=== PATIENT | female | born 1970 | race Caucasian/White ===

== ENCOUNTER 2018-09-30 09:08 | Inpatient (IN) | payer MEDICARE, MEDICAID ==
[~2018-09-30] VITALS: Ht 165.1 cm; Wt 70.8 kg
[~2018-09-30 09:08] MED LIST: ATOR20TA86 PO; BENZ1TAB70 PO; BUSP10TA23 PO; RISP3 PO
[2018-09-30 09:56] LABS: BASOPHILS % (AUTO) 0.8 % (0.0-2.0); EOSINOPHILS % (AUTO) 1.6 % (1.0-6.0); HEMOGLOBIN 15.3 g/dL (12.0-16.0); LYMPHOCYTES # (AUTO) 1.7 K/uL (1.0-4.8); LYMPHOCYTES % (AUTO) 28.2 % (22.0-44.0); MEAN CORPUSCULAR HGB CONC 34.7 G/dL (31.0-37.0); MEAN CORPUSCULAR VOLUME 92 fL (80-100); MONOCYTES # (AUTO) 0.4 K/uL (0.1-1.0); MONOCYTES % (AUTO) 7.4 % (2.0-9.0); NEUTROPHILS # (AUTO) 3.7 K/uL (1.8-7.7); PLATELET COUNT (AUTO) 307 K/uL (150-450); RED BLOOD CELL COUNT(AUTO) 4.78 MIL/uL (4.00-5.20); RED CELL DISTRIBUTION WIDTH 14.3 % (11.5-14.5)
[2018-09-30 10:05] LABS: ANION GAP 5 mmol/L (8-16); CALCIUM, TOTAL 9.3 mg/dL (8.8-10.5); CARBON DIOXIDE 31 mmol/L (22-29); CHLORIDE 103 mmol/L (98-107); CREATININE 0.99 mg/dL (0.60-1.30); GLOMERULAR FILTR. RATE CALC 60 mL/min (>60); GLUCOSE,RANDOM 104 mg/dL (70-110); POTASSIUM 4.6 mmol/L (3.5-5.1); SODIUM SERUM 139 mmol/L (136-145); UREA NITROGEN, BLOOD 13 mg/dL (7-18)
[2018-09-30 10:11] LABS: ALANINE AMINOTRANSFERASE 17 U/L (12-78); ALBUMIN 3.5 g/dL (3.4-5.0); ALKALINE PHOSPHATASE 94 U/L (46-116); ASPARTATE AMINOTRANSFERASE 13 U/L (15-37); BILIRUBIN,TOTAL 0.3 mg/dL (0.1-1.0); TOTAL PROTEIN, SERUM 6.9 g/dL (6.4-8.2)
[2018-09-30] MEDS ORDERED: HALOPERIDOL LACTATE 5 MG/ML VIAL IM ONE (11:45)
[2018-09-30] MEDS ORDERED: LORazepam 2 MG/ML VIAL IM ONE (11:45)
[2018-09-30] MEDS ORDERED: DiphenhydrAMINE HCL 50 MG/ML VIAL IM ONE (11:45)
[2018-09-30] MEDS ORDERED: ZOLPIDEM TARTRATE 10 MG TABLET PO PRN (12:00)
[2018-09-30] MEDS ORDERED: DiphenhydrAMINE HCL 25 MG CAPSULE PO ONE (12:30)
[2018-09-30] MEDS ORDERED: LORazepam 2 MG TABLET PO ONE (12:30)
[2018-09-30] MEDS ORDERED: IBUPROFEN 400 MG TABLET PO PRN ×2 (13:15→16:30)
[2018-09-30] MEDS ORDERED: ACETAMINOPHEN 325 MG TABLET PO PRN ×2 (13:15→16:30)
[2018-09-30 13:53] LABS: AMPHET/METH SCREEN,URINE NEGATIVE (NEGATIVE); BARBITURATE SCREEN, URINE NEGATIVE (NEGATIVE); BENZODIAZEPINES SCREEN,URINE NEGATIVE (NEGATIVE); CANNABINOID SCREEN,URINE NEGATIVE (NEGATIVE); COCAINE SCREEN,URINE NEGATIVE (NEGATIVE); METHADONE SCREEN, URINE NEGATIVE (NEGATIVE); OPIATE SCREEN,URINE NEGATIVE (NEGATIVE); PHENCYCLIDINE SCREEN,URINE NEGATIVE (NEGATIVE)
[2018-09-30 16:11] VITALS: BP 128/84
[2018-09-30] MEDS ORDERED: MAGNESIUM HYDROXIDE SUSPENSION 30 ML UDCUP PO PRN (16:30)
[2018-09-30] MEDS ORDERED: ALBUTEROL SULFATE HFA 90 MCG/PUFF 8 GM INHALER IH PRN (16:30)
[2018-09-30] MEDS ORDERED: ONDANSETRON HCL 4 MG TABLET PO PRN (16:30)
[2018-09-30] MEDS ORDERED: CloNIDine HCL 0.1 MG TABLET PO PRN (16:30)
[2018-09-30] MEDS ORDERED: NICOTINE 14 MG/24 HOUR PATCH TD PRN (16:30)
[2018-09-30] MEDS ORDERED: MAG HYDROX/AL HYDROX/SIMETH ES 30 ML SUSPENSION UDCUP PO PRN (16:30)
[2018-09-30] MEDS ORDERED: DOCUSATE SODIUM 100 MG CAPSULE PO PRN (16:30)
[2018-09-30] MEDS ORDERED: LOPERAMIDE HCL 2 MG CAPSULE PO PRN (16:30)
[2018-09-30] MEDS ORDERED: PETROLATUM,WHITE 71 GM JELLY TP PRN (16:30)
[2018-10-01 04:09] VITALS: BP 127/67
[2018-10-01] MEDS: GuaiFENesin/D-METHORPHAN [SUGAR-FREE] 200-20MG/10 ML SYRUP UDCUP PO PRN ×2 (04:15→17:27)
[2018-10-01] MEDS: LORazepam 2 MG TABLET PO PRN ×3 (04:15→17:02)
[2018-10-01 16:10] VITALS: BP 109/68
[2018-10-01] MEDS: HALOPERIDOL 5 MG TABLET PO PRN (17:02)
[2018-10-02 08:32] LABS: EOSINOPHILS % (AUTO) 1.6 % (1.0-6.0); HEMATOCRIT 44.4 % (36-46); HEMOGLOBIN 15.1 g/dL (12.0-16.0); LYMPHOCYTES # (AUTO) 1.6 K/uL (1.0-4.8); LYMPHOCYTES % (AUTO) 27.1 % (22.0-44.0); MEAN CORPUSCULAR HEMOGLOBIN 30.9 pg (26.0-34.0); MEAN CORPUSCULAR VOLUME 91 fL (80-100); MONOCYTES # (AUTO) 0.5 K/uL (0.1-1.0); MONOCYTES % (AUTO) 8.8 % (2.0-9.0); NEUTROPHILS # (AUTO) 3.6 K/uL (1.8-7.7); NEUTROPHILS % (AUTO) 61.5 % (40.0-70.0); PLATELET COUNT (AUTO) 307 K/uL (150-450); RED BLOOD CELL COUNT(AUTO) 4.89 MIL/uL (4.00-5.20); RED CELL DISTRIBUTION WIDTH 14.2 % (11.5-14.5)
[2018-10-02 08:36] LABS: HEMOGLOBIN A1C 5.3 % (4.5-6.2)
[2018-10-02 09:09] LABS: ALANINE AMINOTRANSFERASE 20 U/L (12-78); ALBUMIN 3.6 g/dL (3.4-5.0); ALKALINE PHOSPHATASE 88 U/L (46-116); ANION GAP 3 mmol/L (8-16); ASPARTATE AMINOTRANSFERASE 12 U/L (15-37); BILIRUBIN,TOTAL 0.3 mg/dL (0.1-1.0); CALCIUM, TOTAL 8.8 mg/dL (8.8-10.5); CARBON DIOXIDE 33 mmol/L (22-29); CHLORIDE 104 mmol/L (98-107); CHOL/HDL RATIO 4.8 (3.9-5.7); CHOLESTEROL 190 mg/dL (131-200); CREATININE 0.96 mg/dL (0.60-1.30); GLOMERULAR FILTR. RATE CALC > 60 mL/min (>60); GLUCOSE,RANDOM 95 mg/dL (70-110); HDL CHOLESTEROL 40 mg/dL (40-60); LDL CHOL (CALC.) 123 mg/dL (0-130); POTASSIUM 4.4 mmol/L (3.5-5.1); SODIUM SERUM 140 mmol/L (136-145); THYROID STIMULATING HORMONE 0.36 uIU/mL (0.36-3.74); TOTAL PROTEIN, SERUM 6.9 g/dL (6.4-8.2); TRIGLYCERIDES 133 mg/dL (15-150); UREA NITROGEN, BLOOD 21 mg/dL (7-18)
[2018-10-02] MEDS: LORazepam 2 MG TABLET PO PRN ×2 (09:59→16:23)
[2018-10-02] MEDS: RisperiDONE 3 MG TABLET PO SCH ×2 (10:12→17:03)
[2018-10-02] MEDS: BusPIRone HCL 10 MG TABLET PO SCH ×2 (10:12→17:03)
[2018-10-02] MEDS: BENZTROPINE MESYLATE 1 MG TABLET PO SCH ×2 (10:12→17:03)
[2018-10-02 16:16] VITALS: BP 119/65
[2018-10-03 06:34] VITALS: BP 125/70
[2018-10-03 09:18] VITALS: BP 104/71
[2018-10-03] MEDS: BusPIRone HCL 10 MG TABLET PO SCH ×2 (09:21→16:47)
[2018-10-03] MEDS: BENZTROPINE MESYLATE 1 MG TABLET PO SCH ×2 (09:21→16:48)
[2018-10-03] MEDS: RisperiDONE 3 MG TABLET PO SCH ×2 (09:21→16:47)
[2018-10-03 17:20] VITALS: BP 111/72
[2018-10-04 06:51] VITALS: BP 115/70
[2018-10-04] MEDS: BusPIRone HCL 10 MG TABLET PO SCH ×2 (09:11→16:37)
[2018-10-04] MEDS: BENZTROPINE MESYLATE 1 MG TABLET PO SCH ×2 (09:11→16:37)
[2018-10-04] MEDS: RisperiDONE 3 MG TABLET PO SCH ×2 (09:13→16:37)
[2018-10-04] MEDS: LORazepam 2 MG TABLET PO PRN (09:13)
[2018-10-04] MEDS: HALOPERIDOL 5 MG TABLET PO PRN (09:13)
[2018-10-04 16:04] VITALS: BP 109/78
[2018-10-05 08:20] VITALS: BP 128/62
[2018-10-05] MEDS: RisperiDONE 3 MG TABLET PO SCH (08:43)
[2018-10-05] MEDS: HALOPERIDOL 5 MG TABLET PO PRN (08:43)
[2018-10-05] MEDS: LORazepam 2 MG TABLET PO PRN (08:43)
[2018-10-05] MEDS: BENZTROPINE MESYLATE 1 MG TABLET PO SCH (08:43)
[2018-10-05] MEDS: BusPIRone HCL 10 MG TABLET PO SCH (08:43)
== END 2018-10-05 13:30 | disposition home or self-care (01) | DRG 885 ==
LOC: EMS 09:09 → B3A 12:45
PROVIDERS: ADMIT Psychiatry & Neurology Child & Adolescent Psychiatry; ATTEND Psychiatry & Neurology Child & Adolescent Psychiatry
DX: F20.0 Paranoid schizophrenia (principal); J44.9 Chronic obstructive pulmonary disease, unspecified; E78.5 Hyperlipidemia, unspecified; G47.00 Insomnia, unspecified; I10 Essential (primary) hypertension; F17.200 Nicotine dependence, unspecified, uncomplicated; R00.0 Tachycardia, unspecified; R45.850 Homicidal ideations; Z71.6 Tobacco abuse counseling; Z28.21 Immunization not carried out because of patient refusal
CPT/HCPCS: 83036; 84443; 87081; G0480; J1200; J2060; J3535

== ENCOUNTER 2020-02-29 10:06 | Inpatient (IN) | payer MEDICARE, MEDICAID ==
[~2020-02-29 10:06] MED LIST changes: -ATOR20TA86 PO
[2020-02-29] MEDS ORDERED: TUBERCULIN, PURIFIED PROTEIN DERIVATIVE 5 TU/0.1 ML SYRINGE ID ONE (14:30)
[2020-02-29] MEDS ORDERED: HALOPERIDOL 5 MG TABLET PO PRN (14:30)
[2020-02-29 16:20] VITALS: BP 129/85
[2020-02-29] MEDS: BACITRACIN 28.4 GM OINTMENT TP SCH (16:57)
[2020-03-01] MEDS ORDERED: DiphenhydrAMINE HCL 50 MG/ML VIAL IM ONE ×2 (04:00→13:15)
[2020-03-01] MEDS ORDERED: LORazepam 2 MG/ML VIAL IM ONE ×2 (04:00→13:15)
[2020-03-01] MEDS ORDERED: HALOPERIDOL LACTATE 5 MG/ML VIAL IM ONE ×2 (04:00→13:15)
[2020-03-01 08:33] VITALS: BP 105/55
[2020-03-01] MEDS: BACITRACIN 28.4 GM OINTMENT TP SCH ×2 (09:00→17:07)
[2020-03-01] MEDS ORDERED: ONDANSETRON HCL 4 MG TABLET PO PRN (09:30)
[2020-03-01] MEDS ORDERED: LOPERAMIDE HCL 2 MG CAPSULE PO PRN (09:30)
[2020-03-01] MEDS ORDERED: GuaiFENesin/D-METHORPHAN [SUGAR-FREE] 200-20MG/10 ML SYRUP UDCUP PO PRN (09:30)
[2020-03-01] MEDS ORDERED: CloNIDine HCL 0.1 MG TABLET PO PRN (09:30)
[2020-03-01] MEDS ORDERED: IBUPROFEN 400 MG TABLET PO PRN (09:30)
[2020-03-01] MEDS ORDERED: DOCUSATE SODIUM 100 MG CAPSULE PO PRN (09:30)
[2020-03-01] MEDS ORDERED: NICOTINE 14 MG/24 HOUR PATCH TD PRN (09:30)
[2020-03-01] MEDS ORDERED: ALBUTEROL SULFATE HFA 90 MCG/PUFF 8 GM INHALER IH PRN (09:30)
[2020-03-01] MEDS ORDERED: PETROLATUM,WHITE 28 GM JELLY TP PRN (09:30)
[2020-03-01] MEDS ORDERED: MAG HYDROX/AL HYDROX/SIMETH ES 30 ML SUSPENSION UDCUP PO PRN (09:30)
[2020-03-01] MEDS ORDERED: MAGNESIUM HYDROXIDE SUSPENSION 30 ML UDCUP PO PRN (09:30)
[2020-03-01] MEDS ORDERED: ACETAMINOPHEN 325 MG TABLET PO PRN (09:30)
[2020-03-01] MEDS ORDERED: BENZ1TAB10 PO (12:07)
[2020-03-01 16:15] VITALS: BP 110/60
[2020-03-01] MEDS: BENZTROPINE MESYLATE 1 MG TABLET PO SCH (17:06)
[2020-03-01] MEDS: RisperiDONE 3 MG TABLET PO SCH (17:06)
[2020-03-01] MEDS: BusPIRone HCL 10 MG TABLET PO SCH (17:06)
[2020-03-01] MEDS: LORazepam 2 MG TABLET PO PRN (19:24)
[2020-03-01] MEDS: ZOLPIDEM TARTRATE 10 MG TABLET PO PRN (20:54)
[2020-03-02 06:55] VITALS: BP 125/66
[2020-03-02 08:17] VITALS: BP 118/64
[2020-03-02] MEDS: RisperiDONE 3 MG TABLET PO SCH ×2 (08:22→16:34)
[2020-03-02] MEDS: BusPIRone HCL 10 MG TABLET PO SCH ×2 (08:22→16:34)
[2020-03-02] MEDS: BACITRACIN 28.4 GM OINTMENT TP SCH ×2 (10:03→16:34)
[2020-03-02] MEDS: BENZTROPINE MESYLATE 1 MG TABLET PO SCH ×2 (10:03→16:34)
[2020-03-02] MEDS: LORazepam 2 MG TABLET PO PRN (14:54)
[2020-03-02 16:20] VITALS: BP 116/68
[2020-03-02] MEDS: ZOLPIDEM TARTRATE 10 MG TABLET PO PRN (21:29)
[2020-03-03 02:01] VITALS: BP 128/80
[2020-03-03 08:09] LABS: BASOPHILS % (AUTO) 0.9 % (0.0-2.0); EOSINOPHILS % (AUTO) 2.4 % (1.0-6.0); LYMPHOCYTES # (AUTO) 1.9 K/uL (1.0-4.8); MEAN CORPUSCULAR HEMOGLOBIN 30.2 pg (26.0-34.0); MEAN CORPUSCULAR VOLUME 89 fL (80-100); MONOCYTES # (AUTO) 0.4 K/uL (0.1-1.0); MONOCYTES % (AUTO) 8.1 % (2.0-9.0); NEUTROPHILS # (AUTO) 2.6 K/uL (1.8-7.7); NEUTROPHILS % (AUTO) 50.6 % (40.0-70.0); PLATELET COUNT (AUTO) 253 K/uL (150-450); RED BLOOD CELL COUNT(AUTO) 4.96 MIL/uL (4.00-5.20); RED CELL DISTRIBUTION WIDTH 13.3 % (11.5-14.5)
[2020-03-03 08:19] VITALS: BP 100/67
[2020-03-03 08:49] LABS: ALANINE AMINOTRANSFERASE 13 U/L (12-78); ALBUMIN 3.7 g/dL (3.4-5.0); ALKALINE PHOSPHATASE 74 U/L (46-116); ANION GAP 9 mmol/L (8-16); ASPARTATE AMINOTRANSFERASE 9 U/L (15-37); BILIRUBIN,TOTAL 0.3 mg/dL (0.1-1.0); CARBON DIOXIDE 27 mmol/L (22-29); CHLORIDE 106 mmol/L (98-107); CHOL/HDL RATIO 4.1 (3.9-5.7); CHOLESTEROL 180 mg/dL (131-200); GLOMERULAR FILTR. RATE CALC > 60 mL/min (>60); GLUCOSE,RANDOM 86 mg/dL (70-110); HDL CHOLESTEROL 44 mg/dL (40-60); LDL CHOL (CALC.) 107 mg/dL (0-130); POTASSIUM 3.9 mmol/L (3.5-5.1); SODIUM SERUM 142 mmol/L (136-145); THYROID STIMULATING HORMONE 0.74 uIU/mL (0.36-3.74); TOTAL PROTEIN, SERUM 6.4 g/dL (6.4-8.2); TRIGLYCERIDES 145 mg/dL (15-150); UREA NITROGEN, BLOOD 17 mg/dL (7-18)
[2020-03-03] MEDS: BENZTROPINE MESYLATE 1 MG TABLET PO SCH ×2 (09:06→16:48)
[2020-03-03] MEDS: RisperiDONE 3 MG TABLET PO SCH ×2 (09:06→16:48)
[2020-03-03] MEDS: BusPIRone HCL 10 MG TABLET PO SCH ×2 (09:06→16:48)
[2020-03-03 09:15] LABS: HCG,QUANTITATIVE 1 mIU/mL (0-6)
[2020-03-03] MEDS: BACITRACIN 28.4 GM OINTMENT TP SCH ×2 (09:20→16:49)
[2020-03-03 16:06] VITALS: BP 110/74
[2020-03-03] MEDS: ZOLPIDEM TARTRATE 10 MG TABLET PO PRN (22:44)
[2020-03-04 00:30] VITALS: BP 129/89
[2020-03-04 08:07] VITALS: BP 101/61
[2020-03-04] MEDS: BACITRACIN 28.4 GM OINTMENT TP SCH ×2 (09:30→16:44)
[2020-03-04] MEDS: BusPIRone HCL 10 MG TABLET PO SCH ×2 (09:32→16:41)
[2020-03-04] MEDS: RisperiDONE 3 MG TABLET PO SCH ×2 (09:32→16:42)
[2020-03-04] MEDS: BENZTROPINE MESYLATE 1 MG TABLET PO SCH ×2 (09:32→16:42)
[2020-03-05 01:10] VITALS: BP 103/70
[2020-03-05] MEDS: BusPIRone HCL 10 MG TABLET PO SCH ×2 (08:28→16:32)
[2020-03-05] MEDS: RisperiDONE 3 MG TABLET PO SCH ×2 (08:28→16:32)
[2020-03-05] MEDS: BENZTROPINE MESYLATE 1 MG TABLET PO SCH ×2 (08:28→16:32)
[2020-03-05] MEDS: BACITRACIN 28.4 GM OINTMENT TP SCH ×2 (08:29→16:33)
[2020-03-05 09:26] VITALS: BP 100/76
[2020-03-05 16:06] VITALS: BP 106/64
[2020-03-06 01:09] VITALS: BP 109/73
[2020-03-06] MEDS: BENZTROPINE MESYLATE 1 MG TABLET PO SCH ×2 (08:30→16:28)
[2020-03-06] MEDS: BusPIRone HCL 10 MG TABLET PO SCH ×2 (08:30→16:28)
[2020-03-06] MEDS: RisperiDONE 3 MG TABLET PO SCH ×2 (08:30→16:28)
[2020-03-06 08:43] VITALS: BP 105/60
[2020-03-06] MEDS: BACITRACIN 28.4 GM OINTMENT TP SCH ×2 (08:58→16:28)
[2020-03-06 16:12] VITALS: BP 108/69
[2020-03-07 00:17] VITALS: BP 102/71
[2020-03-07 08:05] VITALS: BP 133/63
[2020-03-07] MEDS: BusPIRone HCL 10 MG TABLET PO SCH ×2 (09:15→16:32)
[2020-03-07] MEDS: LORazepam 2 MG TABLET PO PRN (09:15)
[2020-03-07] MEDS: BENZTROPINE MESYLATE 1 MG TABLET PO SCH ×2 (09:16→16:32)
[2020-03-07] MEDS: BACITRACIN 28.4 GM OINTMENT TP SCH ×2 (09:16→16:32)
[2020-03-07] MEDS: RisperiDONE 3 MG TABLET PO SCH ×2 (09:16→16:32)
[2020-03-07 16:07] VITALS: BP 121/76
[2020-03-08 00:07] VITALS: BP 112/70
[2020-03-08] MEDS: BusPIRone HCL 10 MG TABLET PO SCH ×2 (08:12→17:01)
[2020-03-08] MEDS: BENZTROPINE MESYLATE 1 MG TABLET PO SCH ×2 (08:12→17:01)
[2020-03-08] MEDS: RisperiDONE 3 MG TABLET PO SCH ×2 (08:12→17:01)
[2020-03-08] MEDS: BACITRACIN 28.4 GM OINTMENT TP SCH ×2 (08:14→17:01)
[2020-03-08 08:19] VITALS: BP 102/63
[2020-03-08] MEDS: MULTIVITAMINS WITH IRON TABLET PO SCH (12:41)
[2020-03-08 16:14] VITALS: BP 102/60
[2020-03-09] MEDS: BENZTROPINE MESYLATE 1 MG TABLET PO SCH ×2 (08:13→16:20)
[2020-03-09] MEDS: BusPIRone HCL 10 MG TABLET PO SCH ×2 (08:13→16:20)
[2020-03-09] MEDS: MULTIVITAMINS WITH IRON TABLET PO SCH (08:13)
[2020-03-09] MEDS: RisperiDONE 3 MG TABLET PO SCH ×2 (08:13→16:20)
[2020-03-09] MEDS: BACITRACIN 28.4 GM OINTMENT TP SCH ×2 (08:17→16:20)
[2020-03-09 08:33] VITALS: BP 105/65
[2020-03-09 16:05] VITALS: BP 113/60
[2020-03-10] MEDS: BusPIRone HCL 10 MG TABLET PO SCH ×2 (08:15→16:30)
[2020-03-10] MEDS: RisperiDONE 3 MG TABLET PO SCH ×2 (08:15→16:30)
[2020-03-10] MEDS: BENZTROPINE MESYLATE 1 MG TABLET PO SCH ×2 (08:15→16:30)
[2020-03-10] MEDS: MULTIVITAMINS WITH IRON TABLET PO SCH (08:15)
[2020-03-10] MEDS: BACITRACIN 28.4 GM OINTMENT TP SCH (08:19)
[2020-03-10 16:14] VITALS: BP 108/68
[2020-03-10] MEDS: LORazepam 2 MG TABLET PO PRN (17:31)
[2020-03-11 08:12] VITALS: BP 121/68
[2020-03-11] MEDS: RisperiDONE 3 MG TABLET PO SCH ×2 (08:27→16:30)
[2020-03-11] MEDS: MULTIVITAMINS WITH IRON TABLET PO SCH (08:28)
[2020-03-11] MEDS: BENZTROPINE MESYLATE 1 MG TABLET PO SCH ×2 (08:28→16:30)
[2020-03-11] MEDS: BusPIRone HCL 10 MG TABLET PO SCH ×2 (08:28→16:30)
[2020-03-11 16:29] VITALS: BP 109/68
[2020-03-11] MEDS: LORazepam 2 MG TABLET PO PRN (18:23)
[2020-03-12 01:39] VITALS: BP 96/50
[2020-03-12 08:06] VITALS: BP 105/61
[2020-03-12] MEDS: BusPIRone HCL 10 MG TABLET PO SCH ×2 (08:44→16:28)
[2020-03-12] MEDS: RisperiDONE 3 MG TABLET PO SCH ×2 (08:44→16:28)
[2020-03-12] MEDS: MULTIVITAMINS WITH IRON TABLET PO SCH (08:44)
[2020-03-12] MEDS: BENZTROPINE MESYLATE 1 MG TABLET PO SCH ×2 (08:44→16:29)
[2020-03-12 16:14] VITALS: BP 107/70
[2020-03-13] MEDS: BusPIRone HCL 10 MG TABLET PO SCH ×2 (08:12→16:31)
[2020-03-13] MEDS: RisperiDONE 3 MG TABLET PO SCH ×2 (08:12→16:42)
[2020-03-13] MEDS: MULTIVITAMINS WITH IRON TABLET PO SCH (08:12)
[2020-03-13] MEDS: BENZTROPINE MESYLATE 1 MG TABLET PO SCH ×2 (08:12→16:31)
[2020-03-13 08:22] VITALS: BP 90/55
[2020-03-13] MEDS: LORazepam 2 MG TABLET PO PRN (14:58)
[2020-03-13 16:12] VITALS: BP 106/62
[2020-03-14] MEDS: MULTIVITAMINS WITH IRON TABLET PO SCH (08:19)
[2020-03-14] MEDS: RisperiDONE 3 MG TABLET PO SCH ×2 (08:19→16:16)
[2020-03-14] MEDS: BENZTROPINE MESYLATE 1 MG TABLET PO SCH ×2 (08:19→16:16)
[2020-03-14] MEDS: BusPIRone HCL 10 MG TABLET PO SCH ×2 (08:20→16:16)
[2020-03-14 17:03] VITALS: BP 97/66
[2020-03-14] MEDS: LORazepam 2 MG TABLET PO PRN (17:42)
[2020-03-15 05:28] VITALS: BP 99/57
[2020-03-15] MEDS: BENZTROPINE MESYLATE 1 MG TABLET PO SCH ×2 (08:43→16:35)
[2020-03-15] MEDS: MULTIVITAMINS WITH IRON TABLET PO SCH (08:43)
[2020-03-15] MEDS: RisperiDONE 3 MG TABLET PO SCH ×2 (08:43→16:35)
[2020-03-15] MEDS: BusPIRone HCL 10 MG TABLET PO SCH ×2 (08:44→16:35)
[2020-03-15 08:51] VITALS: BP 97/60
[2020-03-15 16:00] VITALS: BP 97/61
[2020-03-15 19:55] VITALS: BP 106/70
[2020-03-16 01:14] VITALS: BP 110/69
[2020-03-16 08:41] VITALS: BP 100/60
[2020-03-16] MEDS: MULTIVITAMINS WITH IRON TABLET PO SCH (08:51)
[2020-03-16] MEDS: BusPIRone HCL 10 MG TABLET PO SCH ×2 (08:51→17:07)
[2020-03-16] MEDS: RisperiDONE 3 MG TABLET PO SCH ×2 (08:51→16:47)
[2020-03-16] MEDS: BENZTROPINE MESYLATE 1 MG TABLET PO SCH ×2 (08:51→16:47)
[2020-03-16] MEDS: LORazepam 2 MG TABLET PO PRN (15:54)
[2020-03-16 16:00] VITALS: BP 121/97
[2020-03-17 00:22] VITALS: BP 117/78
[2020-03-17] MEDS: MULTIVITAMINS WITH IRON TABLET PO SCH (08:21)
[2020-03-17] MEDS: RisperiDONE 3 MG TABLET PO SCH ×2 (08:22→16:29)
[2020-03-17] MEDS: BENZTROPINE MESYLATE 1 MG TABLET PO SCH ×2 (08:22→16:29)
[2020-03-17] MEDS: BusPIRone HCL 10 MG TABLET PO SCH ×2 (08:22→16:29)
[2020-03-17 08:27] VITALS: BP 105/68
[2020-03-17] MEDS: LORazepam 2 MG TABLET PO PRN (10:24)
[2020-03-17 16:11] VITALS: BP 107/62
[2020-03-18 01:59] VITALS: BP 100/68
[2020-03-18] MEDS: ZOLPIDEM TARTRATE 10 MG TABLET PO PRN (02:44)
[2020-03-18] MEDS: RisperiDONE 3 MG TABLET PO SCH ×2 (08:18→16:35)
[2020-03-18] MEDS: BENZTROPINE MESYLATE 1 MG TABLET PO SCH ×2 (08:18→16:35)
[2020-03-18] MEDS: BusPIRone HCL 10 MG TABLET PO SCH ×2 (08:18→16:35)
[2020-03-18] MEDS: MULTIVITAMINS WITH IRON TABLET PO SCH (08:18)
[2020-03-18] MEDS: LORazepam 2 MG TABLET PO PRN ×2 (10:17→18:38)
[2020-03-18 16:52] VITALS: BP 105/64
[2020-03-19 01:03] VITALS: BP 108/66
[2020-03-19 08:11] VITALS: BP 100/60
[2020-03-19] MEDS: BusPIRone HCL 10 MG TABLET PO SCH ×2 (08:28→16:42)
[2020-03-19] MEDS: MULTIVITAMINS WITH IRON TABLET PO SCH (08:28)
[2020-03-19] MEDS: RisperiDONE 3 MG TABLET PO SCH ×2 (08:28→16:42)
[2020-03-19] MEDS: BENZTROPINE MESYLATE 1 MG TABLET PO SCH ×2 (08:28→16:42)
[2020-03-19] MEDS: LORazepam 2 MG TABLET PO PRN ×2 (10:28→16:06)
[2020-03-19 16:50] VITALS: BP 100/59
[2020-03-20 00:23] VITALS: BP 109/69
[2020-03-20] MEDS: ZOLPIDEM TARTRATE 10 MG TABLET PO PRN (00:45)
[2020-03-20 08:35] VITALS: BP 110/65
[2020-03-20] MEDS: MULTIVITAMINS WITH IRON TABLET PO SCH (08:38)
[2020-03-20] MEDS: BusPIRone HCL 10 MG TABLET PO SCH (08:38)
[2020-03-20] MEDS: RisperiDONE 3 MG TABLET PO SCH (08:39)
[2020-03-20] MEDS: BENZTROPINE MESYLATE 1 MG TABLET PO SCH (08:39)
== END 2020-03-20 12:40 | disposition home or self-care (01) | DRG 885 ==
LOC: B2X 14:25
PROVIDERS: ADMIT Psychiatry & Neurology Child & Adolescent Psychiatry; ATTEND Psychiatry & Neurology Child & Adolescent Psychiatry
DX: F25.0 Schizoaffective disorder, bipolar type (principal); I10 Essential (primary) hypertension; E78.5 Hyperlipidemia, unspecified; J44.9 Chronic obstructive pulmonary disease, unspecified; F41.9 Anxiety disorder, unspecified; G47.00 Insomnia, unspecified; K30 Functional dyspepsia; Z91.14 Patient's other noncompliance with medication regimen; Z91.19 Patient's noncompliance with other medical treatment and regimen
CPT/HCPCS: 84443; J1200; J1630; J2060

== ENCOUNTER 2020-04-08 11:15 | Inpatient (IN) | payer MEDICARE, MEDICAID ==
[~2020-04-08] VITALS: Ht 165.1 cm; Wt 65.0 kg
[~2020-04-08 11:15] MED LIST changes: +BENZ1TAB10 PO; -BENZ1TAB70 PO; -RISP3 PO; +RISP3TAB14 PO
[2020-04-08] MEDS ORDERED: ZOLPIDEM TARTRATE 5 MG TABLET PO PRN (14:45)
[2020-04-08] MEDS ORDERED: HALOPERIDOL 5 MG TABLET PO PRN (14:45)
[2020-04-08 15:16] VITALS: BP 123/76
[2020-04-08] MEDS: LORazepam 2 MG TABLET PO PRN (15:48)
[2020-04-08 17:05] VITALS: BP 114/62
[2020-04-09 00:11] VITALS: BP 112/70
[2020-04-09 08:24] VITALS: BP 138/75
[2020-04-09] MEDS: LORazepam 2 MG TABLET PO PRN ×2 (09:57→19:02)
[2020-04-09] MEDS: BusPIRone HCL 10 MG TABLET PO SCH (16:30)
[2020-04-09] MEDS: RisperiDONE 3 MG TABLET PO SCH (16:30)
[2020-04-09] MEDS: BENZTROPINE MESYLATE 1 MG TABLET PO SCH (16:30)
[2020-04-09 16:52] VITALS: BP 107/58
[2020-04-10] MEDS: RisperiDONE 3 MG TABLET PO SCH ×2 (08:33→17:00)
[2020-04-10] MEDS: BusPIRone HCL 10 MG TABLET PO SCH ×2 (08:33→17:00)
[2020-04-10] MEDS: BENZTROPINE MESYLATE 1 MG TABLET PO SCH ×2 (08:33→17:00)
[2020-04-10] MEDS: LORazepam 2 MG TABLET PO PRN ×2 (11:35→19:37)
[2020-04-10 16:05] VITALS: BP 108/66
[2020-04-11 06:04] VITALS: BP 100/65
[2020-04-11] MEDS: RisperiDONE 3 MG TABLET PO SCH ×2 (08:44→16:51)
[2020-04-11] MEDS: BusPIRone HCL 10 MG TABLET PO SCH ×2 (08:44→16:52)
[2020-04-11] MEDS: BENZTROPINE MESYLATE 1 MG TABLET PO SCH ×2 (08:45→16:52)
[2020-04-11 16:11] VITALS: BP_SYST 102; BP_SYST 90; BP_DIAS 55; BP_DIAS 65
[2020-04-12 04:02] VITALS: BP 101/69
[2020-04-12 08:39] VITALS: BP 122/68
[2020-04-12] MEDS: BusPIRone HCL 10 MG TABLET PO SCH ×2 (08:41→16:09)
[2020-04-12] MEDS: BENZTROPINE MESYLATE 1 MG TABLET PO SCH ×2 (08:41→16:08)
[2020-04-12] MEDS: RisperiDONE 3 MG TABLET PO SCH ×2 (08:41→16:08)
[2020-04-12] MEDS: LORazepam 2 MG TABLET PO PRN (11:33)
[2020-04-12] MEDS ORDERED: ACETAMINOPHEN 325 MG TABLET PO PRN (13:45)
[2020-04-12] MEDS ORDERED: CloNIDine HCL 0.1 MG TABLET PO PRN (13:45)
[2020-04-12] MEDS ORDERED: LOPERAMIDE HCL 2 MG CAPSULE PO PRN (13:45)
[2020-04-12] MEDS ORDERED: PETROLATUM,WHITE 28 GM JELLY TP PRN (13:45)
[2020-04-12] MEDS ORDERED: GuaiFENesin/D-METHORPHAN [SUGAR-FREE] 200-20MG/10 ML SYRUP UDCUP PO PRN (13:45)
[2020-04-12] MEDS ORDERED: MAGNESIUM HYDROXIDE SUSPENSION 30 ML UDCUP PO PRN (13:45)
[2020-04-12] MEDS ORDERED: ALBUTEROL SULFATE HFA 90 MCG/PUFF 8 GM INHALER IH PRN (13:45)
[2020-04-12] MEDS ORDERED: NICOTINE 14 MG/24 HOUR PATCH TD PRN (13:45)
[2020-04-12] MEDS ORDERED: ONDANSETRON HCL 4 MG TABLET PO PRN (13:45)
[2020-04-12] MEDS ORDERED: MAG HYDROX/AL HYDROX/SIMETH ES 30 ML SUSPENSION UDCUP PO PRN (13:45)
[2020-04-12] MEDS ORDERED: DOCUSATE SODIUM 100 MG CAPSULE PO PRN (13:45)
[2020-04-12 16:10] VITALS: BP 114/72
[2020-04-13 00:05] VITALS: BP 112/80
[2020-04-13] MEDS: BENZTROPINE MESYLATE 1 MG TABLET PO SCH ×2 (08:05→16:21)
[2020-04-13] MEDS: RisperiDONE 3 MG TABLET PO SCH ×2 (08:05→16:21)
[2020-04-13] MEDS: BusPIRone HCL 10 MG TABLET PO SCH ×2 (08:05→16:23)
[2020-04-13 09:00] VITALS: BP 118/65
[2020-04-13] MEDS: LORazepam 2 MG TABLET PO PRN ×2 (10:54→19:30)
[2020-04-13 16:02] VITALS: BP 96/62
[2020-04-13 20:20] VITALS: BP 101/64
[2020-04-14 02:17] VITALS: BP 100/70
[2020-04-14] MEDS: BusPIRone HCL 10 MG TABLET PO SCH ×2 (08:14→16:48)
[2020-04-14] MEDS: BENZTROPINE MESYLATE 1 MG TABLET PO SCH ×2 (08:14→16:48)
[2020-04-14] MEDS: RisperiDONE 3 MG TABLET PO SCH ×2 (08:15→16:48)
[2020-04-14 09:22] VITALS: BP 104/64
[2020-04-14] MEDS: LORazepam 2 MG TABLET PO PRN ×2 (09:26→16:00)
[2020-04-14 16:16] VITALS: BP 100/59
[2020-04-15 00:07] VITALS: BP 102/68
[2020-04-15] MEDS: RisperiDONE 3 MG TABLET PO SCH ×2 (08:11→16:40)
[2020-04-15] MEDS: BENZTROPINE MESYLATE 1 MG TABLET PO SCH ×2 (08:11→16:40)
[2020-04-15] MEDS: BusPIRone HCL 10 MG TABLET PO SCH ×2 (08:11→16:40)
[2020-04-15 08:19] VITALS: BP 96/58
[2020-04-15 11:00] VITALS: BP 103/61
[2020-04-15] MEDS: LORazepam 2 MG TABLET PO PRN (12:25)
[2020-04-15 16:05] VITALS: BP 115/68
[2020-04-16 05:00] VITALS: BP 120/81
[2020-04-16] MEDS: RisperiDONE 3 MG TABLET PO SCH ×2 (08:35→17:08)
[2020-04-16] MEDS: BENZTROPINE MESYLATE 1 MG TABLET PO SCH ×2 (08:35→17:08)
[2020-04-16] MEDS: BusPIRone HCL 10 MG TABLET PO SCH ×2 (08:35→17:08)
[2020-04-16 08:48] VITALS: BP 120/71
[2020-04-16] MEDS: LORazepam 2 MG TABLET PO PRN ×2 (12:08→17:08)
[2020-04-16 16:16] VITALS: BP 104/60
[2020-04-17 03:00] VITALS: BP 110/68
[2020-04-17] MEDS: RisperiDONE 3 MG TABLET PO SCH ×2 (08:10→16:34)
[2020-04-17] MEDS: BENZTROPINE MESYLATE 1 MG TABLET PO SCH ×2 (08:10→16:34)
[2020-04-17] MEDS: BusPIRone HCL 10 MG TABLET PO SCH ×2 (08:10→16:34)
[2020-04-17 08:14] VITALS: BP 97/57
[2020-04-17] MEDS: LORazepam 2 MG TABLET PO PRN ×2 (10:38→18:45)
[2020-04-17 16:04] VITALS: BP 107/70
[2020-04-18 00:05] VITALS: BP 117/73
[2020-04-18] MEDS: BENZTROPINE MESYLATE 1 MG TABLET PO SCH ×2 (08:31→16:33)
[2020-04-18] MEDS: BusPIRone HCL 10 MG TABLET PO SCH ×2 (08:31→16:33)
[2020-04-18] MEDS: RisperiDONE 3 MG TABLET PO SCH ×2 (08:31→16:33)
[2020-04-18] MEDS: LORazepam 2 MG TABLET PO PRN (10:35)
[2020-04-18 16:23] VITALS: BP 107/68
[2020-04-19 01:20] VITALS: BP 109/65
[2020-04-19] MEDS: BENZTROPINE MESYLATE 1 MG TABLET PO SCH ×2 (08:05→16:27)
[2020-04-19] MEDS: RisperiDONE 3 MG TABLET PO SCH ×2 (08:05→16:28)
[2020-04-19] MEDS: BusPIRone HCL 10 MG TABLET PO SCH ×2 (08:05→16:27)
[2020-04-19 08:28] VITALS: BP 100/54
[2020-04-19] MEDS: LORazepam 2 MG TABLET PO PRN ×2 (09:37→19:09)
[2020-04-19 16:29] VITALS: BP 100/65
[2020-04-19] MEDS: IBUPROFEN 400 MG TABLET PO PRN (16:29)
[2020-04-20] VITALS: BP 104/64
[2020-04-20 08:42] VITALS: BP 100/62
[2020-04-20] MEDS: RisperiDONE 3 MG TABLET PO SCH ×2 (09:00→17:27)
[2020-04-20] MEDS: BusPIRone HCL 10 MG TABLET PO SCH ×2 (09:00→17:27)
[2020-04-20] MEDS: BENZTROPINE MESYLATE 1 MG TABLET PO SCH ×2 (09:00→17:27)
[2020-04-20] MEDS: LORazepam 2 MG TABLET PO PRN ×2 (09:15→14:45)
[2020-04-20 16:36] VITALS: BP 101/95
[2020-04-21 01:52] VITALS: BP 103/62
[2020-04-21 08:12] VITALS: BP 102/60
[2020-04-21] MEDS: RisperiDONE 3 MG TABLET PO SCH ×2 (08:44→16:33)
[2020-04-21] MEDS: BusPIRone HCL 10 MG TABLET PO SCH ×2 (08:44→16:33)
[2020-04-21] MEDS: BENZTROPINE MESYLATE 1 MG TABLET PO SCH ×2 (08:44→16:33)
[2020-04-21] MEDS: IBUPROFEN 400 MG TABLET PO PRN (08:51)
[2020-04-21] MEDS: LORazepam 2 MG TABLET PO PRN ×2 (08:52→16:33)
[2020-04-21 16:15] VITALS: BP 100/75
[2020-04-22] VITALS: BP 106/63
[2020-04-22] MEDS: BENZTROPINE MESYLATE 1 MG TABLET PO SCH ×2 (08:07→17:03)
[2020-04-22] MEDS: BusPIRone HCL 10 MG TABLET PO SCH ×2 (08:07→17:03)
[2020-04-22] MEDS: RisperiDONE 3 MG TABLET PO SCH ×2 (08:07→17:03)
[2020-04-22 08:23] VITALS: BP 104/62
[2020-04-22] MEDS: LORazepam 2 MG TABLET PO PRN ×2 (09:28→17:03)
[2020-04-22 16:21] VITALS: BP 107/62
[2020-04-23] MEDS: BusPIRone HCL 10 MG TABLET PO SCH ×2 (08:19→17:47)
[2020-04-23] MEDS: BENZTROPINE MESYLATE 1 MG TABLET PO SCH ×2 (08:19→16:33)
[2020-04-23] MEDS: RisperiDONE 3 MG TABLET PO SCH ×2 (08:19→16:33)
[2020-04-23 09:00] VITALS: BP 90/50
[2020-04-23] MEDS: LORazepam 2 MG TABLET PO PRN ×2 (09:15→16:11)
[2020-04-23 16:09] VITALS: BP 105/78
[2020-04-24 05:00] VITALS: BP 101/69
[2020-04-24] MEDS: BusPIRone HCL 10 MG TABLET PO SCH ×2 (08:06→16:34)
[2020-04-24] MEDS: BENZTROPINE MESYLATE 1 MG TABLET PO SCH ×2 (08:06→16:34)
[2020-04-24] MEDS: RisperiDONE 3 MG TABLET PO SCH ×2 (08:06→16:34)
[2020-04-24 08:23] VITALS: BP 100/60
[2020-04-24] MEDS: LORazepam 2 MG TABLET PO PRN ×2 (09:22→18:07)
[2020-04-24 16:13] VITALS: BP 100/54
[2020-04-25 06:11] VITALS: BP 108/59
[2020-04-25] MEDS: BusPIRone HCL 10 MG TABLET PO SCH ×2 (08:20→16:58)
[2020-04-25] MEDS: RisperiDONE 3 MG TABLET PO SCH ×2 (08:20→16:58)
[2020-04-25] MEDS: BENZTROPINE MESYLATE 1 MG TABLET PO SCH ×2 (08:20→16:58)
[2020-04-25 08:33] VITALS: BP 143/60
[2020-04-25] MEDS: LORazepam 2 MG TABLET PO PRN ×2 (08:56→20:21)
[2020-04-25 16:04] VITALS: BP 132/68
[2020-04-26 02:26] VITALS: BP 103/64
[2020-04-26] MEDS: BENZTROPINE MESYLATE 1 MG TABLET PO SCH ×2 (09:03→16:32)
[2020-04-26] MEDS: RisperiDONE 3 MG TABLET PO SCH ×2 (09:03→16:32)
[2020-04-26] MEDS: BusPIRone HCL 10 MG TABLET PO SCH ×2 (09:03→16:32)
[2020-04-26 09:15] VITALS: BP 97/56
[2020-04-26] MEDS: LORazepam 2 MG TABLET PO PRN ×2 (09:44→18:43)
[2020-04-26 16:29] VITALS: BP 109/67
[2020-04-27 02:05] VITALS: BP 100/76
[2020-04-27] MEDS: BusPIRone HCL 10 MG TABLET PO SCH ×2 (08:08→17:23)
[2020-04-27] MEDS: BENZTROPINE MESYLATE 1 MG TABLET PO SCH ×2 (08:08→16:32)
[2020-04-27] MEDS: RisperiDONE 3 MG TABLET PO SCH ×2 (08:08→16:32)
[2020-04-27] MEDS: LORazepam 2 MG TABLET PO PRN ×2 (08:45→15:49)
[2020-04-27 16:17] VITALS: BP 113/76
[2020-04-28 03:27] VITALS: BP 102/66
[2020-04-28 08:54] VITALS: BP 100/55
[2020-04-28] MEDS: RisperiDONE 3 MG TABLET PO SCH ×2 (09:18→16:31)
[2020-04-28] MEDS: BENZTROPINE MESYLATE 1 MG TABLET PO SCH ×2 (09:18→16:31)
[2020-04-28] MEDS: BusPIRone HCL 10 MG TABLET PO SCH ×2 (09:19→16:58)
[2020-04-28] MEDS: LORazepam 2 MG TABLET PO PRN (09:49)
[2020-04-28 16:12] VITALS: BP 107/78
== END 2020-04-28 18:36 | disposition home or self-care (01) | DRG 885 ==
LOC: B2X 14:32
PROVIDERS: ADMIT Psychiatry & Neurology Child & Adolescent Psychiatry; ATTEND Psychiatry & Neurology Child & Adolescent Psychiatry
DX: F20.0 Paranoid schizophrenia (principal); I10 Essential (primary) hypertension; F10.10 Alcohol abuse, uncomplicated; E78.5 Hyperlipidemia, unspecified; F15.10 Other stimulant abuse, uncomplicated; F19.10 Other psychoactive substance abuse, uncomplicated; R00.0 Tachycardia, unspecified; G47.00 Insomnia, unspecified; Z87.442 Personal history of urinary calculi; Z87.891 Personal history of nicotine dependence; Z91.14 Patient's other noncompliance with medication regimen; Z71.89 Other specified counseling
CPT/HCPCS: 87081; 84703-TC; Z7610

== ENCOUNTER 2021-12-06 11:16 | Inpatient (IN) | payer MEDICARE, MEDICAID ==
[~2021-12-06] VITALS: Ht 165.1 cm; Wt 73.0 kg
[~2021-12-06 11:16] MED LIST changes: -RISP3TAB14 PO; +RISP3TAB35 PO
[2021-12-06] MEDS ORDERED: DiphenhydrAMINE HCL 50 MG/ML VIAL IM ONE ×2 (13:00→22:30)
[2021-12-06] MEDS ORDERED: HALOPERIDOL LACTATE 5 MG/ML VIAL IM ONE ×2 (13:00→22:30)
[2021-12-06] MEDS ORDERED: LORazepam 2 MG/ML VIAL IM ONE ×2 (13:30→22:30)
[2021-12-06 14:20] LABS: COVID AG,FIA SOURCE NASAL SWAB
[2021-12-07] MEDS: HALOPERIDOL 5 MG TABLET PO PRN ×2 (07:46→16:15)
[2021-12-07] MEDS: LORazepam 2 MG TABLET PO PRN ×2 (07:46→16:15)
[2021-12-07] MEDS ORDERED: -PHARMACY VACCINE NOTE- MISC ONE (17:15)
[2021-12-08] MEDS: HALOPERIDOL 5 MG TABLET PO PRN ×3 (03:23→16:38)
[2021-12-08] MEDS: LORazepam 2 MG TABLET PO PRN ×3 (03:23→16:38)
[2021-12-08 08:31] VITALS: BP 116/74
[2021-12-08] MEDS: RisperiDONE 3 MG TABLET PO SCH ×2 (11:24→16:14)
[2021-12-08] MEDS: BENZTROPINE MESYLATE 1 MG TABLET PO SCH ×2 (11:24→16:14)
[2021-12-08] MEDS: BusPIRone HCL 10 MG TABLET PO SCH ×2 (11:25→16:14)
[2021-12-08 16:28] VITALS: BP 119/73
[2021-12-08] MEDS ORDERED: LOPERAMIDE HCL 2 MG CAPSULE PO PRN (19:00)
[2021-12-08] MEDS ORDERED: PETROLATUM,WHITE 28 GM JELLY TP PRN (19:00)
[2021-12-08] MEDS ORDERED: ALBUTEROL SULFATE HFA 90 MCG/PUFF 8 GM INHALER IH PRN (19:00)
[2021-12-08] MEDS ORDERED: MAGNESIUM HYDROXIDE SUSPENSION 30 ML UDCUP PO PRN (19:00)
[2021-12-08] MEDS ORDERED: ONDANSETRON HCL 4 MG TABLET PO PRN (19:00)
[2021-12-08] MEDS ORDERED: MAG HYDROX/AL HYDROX/SIMETH ES 30 ML SUSPENSION UDCUP PO PRN (19:00)
[2021-12-08] MEDS ORDERED: GuaiFENesin/D-METHORPHAN [SUGAR-FREE] 200-20MG/10 ML SYRUP UDCUP PO PRN (19:00)
[2021-12-08] MEDS ORDERED: CloNIDine HCL 0.1 MG TABLET PO PRN (19:00)
[2021-12-08] MEDS ORDERED: IBUPROFEN 400 MG TABLET PO PRN (19:00)
[2021-12-08] MEDS ORDERED: NICOTINE 14 MG/24 HOUR PATCH TD PRN (19:00)
[2021-12-08] MEDS ORDERED: DOCUSATE SODIUM 100 MG CAPSULE PO PRN (19:00)
[2021-12-09 03:01] VITALS: BP 114/68
[2021-12-09] MEDS: BusPIRone HCL 10 MG TABLET PO SCH ×2 (08:14→16:03)
[2021-12-09] MEDS: BENZTROPINE MESYLATE 1 MG TABLET PO SCH ×2 (08:14→16:03)
[2021-12-09] MEDS: RisperiDONE 3 MG TABLET PO SCH ×2 (08:15→16:03)
[2021-12-09 08:20] VITALS: BP 116/75
[2021-12-09] MEDS: LORazepam 2 MG TABLET PO PRN ×2 (08:22→14:10)
[2021-12-09 16:06] VITALS: BP 118/67
[2021-12-10] MEDS: ZOLPIDEM TARTRATE 10 MG TABLET PO PRN (01:53)
[2021-12-10] MEDS: LORazepam 2 MG TABLET PO PRN ×2 (01:53→16:19)
[2021-12-10 04:30] VITALS: BP 112/63
[2021-12-10 07:52] LABS: BASOPHILS % (AUTO) 0.9 % (0.0-2.0); EOSINOPHILS % (AUTO) 1.5 % (1.0-6.0); HEMATOCRIT 42.2 % (36-46); HEMOGLOBIN 14.9 g/dL (12.0-16.0); LYMPHOCYTES # (AUTO) 1.7 K/uL (1.0-4.8); MEAN CORPUSCULAR HEMOGLOBIN 30.5 pg (26.0-34.0); MEAN CORPUSCULAR HGB CONC 35.3 G/dL (31.0-37.0); MEAN CORPUSCULAR VOLUME 86 fL (80-100); MONOCYTES # (AUTO) 0.5 K/uL (0.1-1.0); NEUTROPHILS # (AUTO) 3.9 K/uL (1.8-7.7); NEUTROPHILS % (AUTO) 62.6 % (40.0-70.0); PLATELET COUNT (AUTO) 263 K/uL (150-450); RED BLOOD CELL COUNT(AUTO) 4.89 MIL/uL (4.00-5.20); RED CELL DISTRIBUTION WIDTH 14.3 % (11.5-14.5)
[2021-12-10 08:13] VITALS: BP 118/73
[2021-12-10 08:16] LABS: ALANINE AMINOTRANSFERASE 24 U/L (12-78); ALBUMIN 3.7 g/dL (3.4-5.0); ALKALINE PHOSPHATASE 87 U/L (46-116); ANION GAP 9 mmol/L (8-16); ASPARTATE AMINOTRANSFERASE 14 U/L (15-37); BILIRUBIN,TOTAL 0.3 mg/dL (0.1-1.0); CALCIUM, TOTAL 9.3 mg/dL (8.8-10.5); CARBON DIOXIDE 27 mmol/L (22-29); CHLORIDE 103 mmol/L (98-107); CHOL/HDL RATIO 5.4 (3.9-5.7); CHOLESTEROL 237 mg/dL (131-200); CREATININE 0.73 mg/dL (0.60-1.30); FREE T4 (FREE THYROXINE) 1.09 ng/dL (0.76-1.46); GLOMERULAR FILTR. RATE CALC > 60 mL/min (>60); GLUCOSE,RANDOM 98 mg/dL (70-110); HDL CHOLESTEROL 44 mg/dL (40-60); LDL CHOL (CALC.) 167 mg/dL (0-130); POTASSIUM 3.8 mmol/L (3.5-5.1); SODIUM SERUM 139 mmol/L (136-145); THYROID STIMULATING HORMONE 0.72 uIU/mL (0.36-3.74); TOTAL PROTEIN, SERUM 7.2 g/dL (6.4-8.2); TRIGLYCERIDES 130 mg/dL (15-150); UREA NITROGEN, BLOOD 19 mg/dL (7-18)
[2021-12-10] MEDS: RisperiDONE 3 MG TABLET PO SCH ×2 (08:28→16:19)
[2021-12-10] MEDS: BENZTROPINE MESYLATE 1 MG TABLET PO SCH ×2 (08:29→16:19)
[2021-12-10] MEDS: BusPIRone HCL 10 MG TABLET PO SCH ×2 (08:29→16:19)
[2021-12-10 16:10] VITALS: BP 108/69
[2021-12-11 07:24] VITALS: BP 112/68
[2021-12-11 08:13] VITALS: BP 126/74
[2021-12-11] MEDS: BusPIRone HCL 10 MG TABLET PO SCH ×2 (08:41→16:15)
[2021-12-11] MEDS: BENZTROPINE MESYLATE 1 MG TABLET PO SCH ×2 (08:41→16:15)
[2021-12-11] MEDS: RisperiDONE 3 MG TABLET PO SCH ×2 (08:41→16:15)
[2021-12-11] MEDS: LORazepam 2 MG TABLET PO PRN ×2 (08:45→16:15)
[2021-12-11 09:02] LABS: AMPHET/METH SCREEN,URINE NEGATIVE (NEGATIVE); BARBITURATE SCREEN, URINE NEGATIVE (NEGATIVE); BENZODIAZEPINES SCREEN,URINE NEGATIVE (NEGATIVE); CANNABINOID SCREEN,URINE NEGATIVE (NEGATIVE); COCAINE SCREEN,URINE NEGATIVE (NEGATIVE); METHADONE SCREEN, URINE NEGATIVE (NEGATIVE); OPIATE SCREEN,URINE NEGATIVE (NEGATIVE); PHENCYCLIDINE SCREEN,URINE NEGATIVE (NEGATIVE)
[2021-12-11 09:16] LABS: APPEARANCE,URINE CLEAR (CLEAR); BILIRUBIN,URINE NEGATIVE (NEGATIVE); GLUCOSE, URINE (UA) NEGATIVE (NEGATIVE); KETONES,URINE NEGATIVE (NEGATIVE); LEUKOCYTE ESTERASE ,URINE NEGATIVE (NEGATIVE); NITRATE,URINE NEGATIVE (NEGATIVE); OCCULT BLOOD,URINE NEGATIVE (NEGATIVE); PROTEIN,URINE NEGATIVE (NEGATIVE); UROBILINOGEN,URINE 0.2 mg/dL (<=1.0)
[2021-12-11 16:14] VITALS: BP 104/63
[2021-12-12 04:22] VITALS: BP 101/67
[2021-12-12] MEDS: RisperiDONE 3 MG TABLET PO SCH ×2 (08:33→16:02)
[2021-12-12] MEDS: BusPIRone HCL 10 MG TABLET PO SCH ×2 (08:33→16:02)
[2021-12-12] MEDS: BENZTROPINE MESYLATE 1 MG TABLET PO SCH ×2 (08:33→16:02)
[2021-12-12 08:43] VITALS: BP 118/68
[2021-12-12] MEDS: LORazepam 2 MG TABLET PO PRN (12:21)
[2021-12-12 16:16] VITALS: BP 142/88
[2021-12-13 03:23] VITALS: BP 128/79
[2021-12-13] MEDS: LORazepam 2 MG TABLET PO PRN (08:10)
[2021-12-13] MEDS: BENZTROPINE MESYLATE 1 MG TABLET PO SCH ×2 (08:10→16:13)
[2021-12-13] MEDS: BusPIRone HCL 10 MG TABLET PO SCH ×2 (08:10→16:13)
[2021-12-13] MEDS: RisperiDONE 3 MG TABLET PO SCH ×2 (08:10→16:13)
[2021-12-13 08:29] VITALS: BP 129/94
[2021-12-13 16:17] VITALS: BP 116/75
[2021-12-14 01:04] VITALS: BP 112/71
[2021-12-14 08:28] VITALS: BP 100/65
[2021-12-14] MEDS: LORazepam 2 MG TABLET PO PRN (08:30)
[2021-12-14] MEDS: BENZTROPINE MESYLATE 1 MG TABLET PO SCH ×2 (08:30→16:46)
[2021-12-14] MEDS: BusPIRone HCL 10 MG TABLET PO SCH ×2 (08:30→16:46)
[2021-12-14] MEDS: RisperiDONE 3 MG TABLET PO SCH ×2 (08:30→16:46)
[2021-12-14] MEDS: ACETAMINOPHEN 325 MG TABLET PO PRN (08:37)
[2021-12-14 16:31] VITALS: BP 115/71
[2021-12-15] MEDS: ZOLPIDEM TARTRATE 10 MG TABLET PO PRN (00:20)
[2021-12-15] MEDS: ACETAMINOPHEN 325 MG TABLET PO PRN ×2 (02:04→16:50)
[2021-12-15 02:05] VITALS: BP 108/66
[2021-12-15 08:19] VITALS: BP 121/61
[2021-12-15] MEDS: RisperiDONE 3 MG TABLET PO SCH ×2 (09:03→16:09)
[2021-12-15] MEDS: BusPIRone HCL 10 MG TABLET PO SCH ×2 (09:03→16:09)
[2021-12-15] MEDS: BENZTROPINE MESYLATE 1 MG TABLET PO SCH ×2 (09:03→16:09)
[2021-12-15] MEDS: LORazepam 2 MG TABLET PO PRN ×2 (09:04→16:18)
[2021-12-15 16:27] VITALS: BP 114/73
[2021-12-16 00:06] VITALS: BP 110/62
[2021-12-16] MEDS: RisperiDONE 3 MG TABLET PO SCH ×2 (08:19→16:07)
[2021-12-16] MEDS: BENZTROPINE MESYLATE 1 MG TABLET PO SCH ×2 (08:19→16:07)
[2021-12-16] MEDS: BusPIRone HCL 10 MG TABLET PO SCH ×2 (08:19→16:07)
[2021-12-16 08:23] VITALS: BP 118/63
[2021-12-16] MEDS: LORazepam 2 MG TABLET PO PRN (15:21)
[2021-12-16 16:25] VITALS: BP 122/76
[2021-12-17 01:23] VITALS: BP 114/73
[2021-12-17] MEDS: LORazepam 2 MG TABLET PO PRN ×2 (08:07→16:43)
[2021-12-17] MEDS: BENZTROPINE MESYLATE 1 MG TABLET PO SCH ×2 (08:07→16:41)
[2021-12-17] MEDS: BusPIRone HCL 10 MG TABLET PO SCH ×2 (08:07→16:41)
[2021-12-17] MEDS: RisperiDONE 3 MG TABLET PO SCH ×2 (08:07→16:40)
[2021-12-17 08:14] VITALS: BP 118/73
[2021-12-17 16:14] VITALS: BP 124/77
[2021-12-18 00:25] VITALS: BP 126/84
[2021-12-18] MEDS: BENZTROPINE MESYLATE 1 MG TABLET PO SCH ×2 (08:30→16:27)
[2021-12-18] MEDS: RisperiDONE 3 MG TABLET PO SCH ×2 (08:30→16:27)
[2021-12-18] MEDS: BusPIRone HCL 10 MG TABLET PO SCH ×2 (08:30→16:27)
[2021-12-18] MEDS: LORazepam 2 MG TABLET PO PRN ×2 (08:33→16:32)
[2021-12-18 09:11] VITALS: BP 127/85
[2021-12-18 16:11] VITALS: BP 112/69
[2021-12-19] VITALS: BP 121/78
[2021-12-19 08:49] VITALS: BP 113/81
[2021-12-19] MEDS: RisperiDONE 3 MG TABLET PO SCH ×2 (09:14→16:48)
[2021-12-19] MEDS: BENZTROPINE MESYLATE 1 MG TABLET PO SCH ×2 (09:14→16:48)
[2021-12-19] MEDS: BusPIRone HCL 10 MG TABLET PO SCH ×2 (09:14→16:48)
[2021-12-19] MEDS: LORazepam 2 MG TABLET PO PRN (09:55)
[2021-12-19 16:10] VITALS: BP 134/78
[2021-12-20 01:22] VITALS: BP 100/70
[2021-12-20 08:21] VITALS: BP 116/65
[2021-12-20] MEDS: RisperiDONE 3 MG TABLET PO SCH ×2 (08:50→18:35)
[2021-12-20] MEDS: BENZTROPINE MESYLATE 1 MG TABLET PO SCH ×2 (08:50→18:35)
[2021-12-20] MEDS: LORazepam 2 MG TABLET PO PRN (08:51)
[2021-12-20] MEDS: BusPIRone HCL 10 MG TABLET PO SCH ×2 (08:51→18:35)
[2021-12-20] MEDS: HALOPERIDOL 5 MG TABLET PO PRN (08:57)
[2021-12-20 16:13] VITALS: BP 116/71
[2021-12-21 00:39] VITALS: BP 111/67
[2021-12-21 08:09] VITALS: BP 125/72
[2021-12-21] MEDS: LORazepam 2 MG TABLET PO PRN (08:16)
[2021-12-21] MEDS: BENZTROPINE MESYLATE 1 MG TABLET PO SCH ×2 (08:16→16:19)
[2021-12-21] MEDS: HALOPERIDOL 5 MG TABLET PO PRN (08:16)
[2021-12-21] MEDS: RisperiDONE 3 MG TABLET PO SCH ×2 (08:16→16:18)
[2021-12-21] MEDS: BusPIRone HCL 10 MG TABLET PO SCH ×2 (08:16→16:18)
[2021-12-21 16:27] VITALS: BP 103/71
[2021-12-21] MEDS ORDERED: RISP3TAB35 PO ×2 (16:48→17:19)
[2021-12-21] MEDS ORDERED: BENZ1TAB10 PO ×2 (16:48→17:16)
[2021-12-21] MEDS ORDERED: BUSP10TA23 PO ×2 (16:48→17:18)
== END 2021-12-21 20:17 | disposition home or self-care (01) | DRG 885 ==
LOC: EMS 11:20 → B3A 12-07 13:36
PROVIDERS: ADMIT Psychiatry & Neurology Child & Adolescent Psychiatry; ATTEND Psychiatry & Neurology Child & Adolescent Psychiatry
DX: F20.0 Paranoid schizophrenia (principal); F19.10 Other psychoactive substance abuse, uncomplicated; E78.5 Hyperlipidemia, unspecified; F10.10 Alcohol abuse, uncomplicated; I10 Essential (primary) hypertension; Z20.822 Contact with and (suspected) exposure to COVID-19; F32.A Depression, unspecified; F41.9 Anxiety disorder, unspecified; Z59.00 Homelessness unspecified
CPT/HCPCS: 80053; 80061; 80307; 81003; 83036; 84439; 84443; 85025; 99285; J1200; J1630; J2060